=== PATIENT | male | born 1960 | race Caucasian/White ===

== ENCOUNTER → 2022-03-01 13:10 | Outpatient (BNVA) | payer MEDICAID, SELFPAY | PROVIDERS: Visit Provider Internal Medicine | DX: I11.0 Hypertensive heart disease with heart failure (principal); I50.9 Heart failure, unspecified; E11.9 Type 2 diabetes mellitus without complications; I48.91 Unspecified atrial fibrillation; Z79.4 Long term (current) use of insulin | CPT/HCPCS: 99214 ==

== ENCOUNTER 2022-06-13 03:21 | Emergency (ER) | payer MEDICAID, SELFPAY ==
[2022-06-13 03:22] VITALS: PULSE 0; RESP 0; O2SAT 40; BMI 38.2
--- NOTE | 2022-06-13 03:29 | ECG_ITS ---
[facility] Test Date: 2022-06-13 Pat Name: Dav Arita Department: Room: Gender: Male [employer] Coordinator: : 1960 Requested By: Callum Boyle Order Number: [id number] Andie MD: Nayana Chavez M.D. Measurements Intervals [place] Rate: 90 P: DC: QRS: -82 QRSD: 236 T: 93 QT: 518 QTc: 637 Interpretive Statements UNCERTAIN IRREGULAR RHYTHM RIGHT BUNDLE BRANCH BLOCK [120+ ms QRS DURATION, UPRIGHT V1, 40+ ms S IN I/aVL/V4/V5/V6] LEFT VENTRICULAR HYPERTROPHY AND ST-T CHANGE [VOLTAGE CRITERIA PLUS ST/T ABNORMALITY] ANTERIOR MYOCARDIAL INFARCTION , OF INDETERMINATE AGE [40+ ms Q WAVE AND/OR ST/T ABNORMALITY IN V3/V4] INFERIOR MYOCARDIAL INFARCTION , POSSIBLY ACUTE [40+ ms Q WAVE AND/OR ST/T ABNORMALITY IN II/aVF] PROLONGED QT INTERVAL ACUTE NC No previous ECG available for comparison Electronically Signed On 06-15-2022 7:23:59 CDT by Nayana Chavez M.D. [id number] gupta
--- NOTE | 2022-06-13 03:43 | XRR_ITS ---
PROCEDURE INFORMATION: Exam: XR Chest Exam date and time: 06/13/2022 3:22 AM Age: 62 years old Clinical indication: Other: Code blue; Prior surgery; Surgery type: Gb; Patient HX: Cpr in progress. Patient received multiple shocks. Blood suctioned from et tube. Et tube adjusted inbetween exposures. TECHNIQUE: Imaging protocol: Radiologic exam of the chest. Views: 1 view. COMPARISON: No relevant prior studies available. FINDINGS: Tubes, catheters and devices: Two images obtained, 3:27 a.m., 3:48 a.m.. On the 1st image, the ET tube lies about 5 cm above the jaja. On the 2nd image, the ET tube has been advanced, lying about 3 cm above the jaja. Lungs: Prominent diffuse bilateral lung opacities could represent CHF/pulmonary edema and/or pneumonia. Please correlate clinically. Pleural spaces: No definite pneumothorax, however a small pneumothorax might not be visible on an image of this technique. No definite pleural fluid. Heart/Mediastinum: Moderate cardiomegaly. Bones/joints: No significant acute finding. XR/XR chest 1V portable [id number] IMPRESSION: 1. ET tube position as above. 2. Prominent diffuse bilateral lung opacities, see above discussion. 3. Other findings discussed above.
--- NOTE | 2022-06-13 04:23 | PC.NURSE ---
Left message on Jr Almeida material handler loader voicemail to return call. Notified [facility] (Daria) of patient passing.
--- NOTE | 2022-06-13 06:15 | W.ED.CPR ---
HPI - CPR General: Chief Complaint: Cardiac Arrest/CPR Stated Complaint: CARDIAC ARREST Time Seen by Provider: 06/13/22 03:43 Source: family and EMS History of Present Illness: 62-year-old male with a history of atrial fibrillation, congestive heart failure, and diabetes. He presents after collapsing at home and being found by his unresponsive. On EMS arrival, he had agonal respirations, and was found to be in V. tach. He was cardioverted. ROSC was obtained briefly, but followed by loss of pulses and a PEA rhythm. He presents intubated and bagged, with ongoing chest compressions and a PEA rhythm. He has had 3 mg of epinephrine in the field, and initially was given 150 mg of amiodarone. MD complaint: found unresponsive and other Onset (ago): minute(s) Time: 03:00 Timing confirmed by: spouse Place: home Bystander CPR performed: No AED applied by bystander/healthcare prof: Yes Shock advised: Yes Initial findings in the field: unresponsive ROSC in the field: Yes (once, but then lost) Associated injuries: No Associated symptoms: shortness of breath Known history of: arrhythmia Treatments prior to arrival: intubation, chest compressions, defibrillated shocks # (1), epinephrine mgs # (3) and amiodarone (150) Review of Systems General: Reports: ROS unobtainable due to medical condition Card: Reports: dyspnea on exertion and orthopnea Resp: Reports: dyspnea PFSH ED PFSH: Medical History Congestive heart failure Diabetes Hypertension Family History Other Hypertension Social History Smoking and tobacco status: never smoked Quit status (tobacco): has quit using tobacco Second hand smoke exposure: No Smoking risk assessment/counseling performed?: No Alcohol intake: never Physical Exam Const: GENERAL APPEARANCE: Limp noted NUTRITIONAL APPEARANCE: obese ORIENTATION/CONSCIOUSNESS: Yes Other orientation findings (unresponsive) HENMT: COMMON NORMALS: atraumatic and Normal external nose present HEAD & SCALP: atraumatic and Acrocyanosis present FACE & SINUS: Acrocyanosis present NOSE: Normal external nose present Eye: PUPIL: Yes Dilated pupils and Yes Fixed pupils Neck/C-Spine: GENERAL: Yes trachea midline Chest: CHEST: Yes Symmetrical chest wall rise Resp: EFFORT & INSPECTION: Yes symmetric chest movement AUSCULTATION: rales and rhonchi Cardio: RATE: Other (no pulse) Neuro: ROBI COMA SCALE: document GCS findings [place] coma scale eye opening: None Robi coma scale verbal response: None [place] coma scale motor response: None [place] coma scale total score: 3 Course Vital Signs: Vital signs: Vital Signs Pulse Rate 0 L 06/13/22 03:22 Respiratory Rate 0 L 06/13/22 03:22 Pulse Oximetry 40 L 06/13/22 03:22 Oxygen Delivery Me thod 06/13/22 03:22 MDM - Cardiac Arrest/CPR Medical Decision Making On arrival this patient was pulseless, and in PEA. Chest compressions were continued. We will continue to give epinephrine. Bicarbonate was given as well. Breath sounds were present on bag valve respirations through the ET tube. Chest x-ray confirmed tracheal placement, but was a bit high, and the tube was advanced. At 1 point, ventricular tachycardia was seen at pulse check. This was cardioverted to a wide sinus rhythm with defibrillation. Pulses were maintained for short time at that point. The patient was given amiodarone when he again had ventricular tachycardia, at this time pulsatile. Short time after this, the patient bradycardia down to a PEA rhythm and was pulseless again. Bedside ultrasound while the patient had a rhythm showed an ejection fraction around 10% with no pericardial effusion. Chest x-ray showed again proper tube placement with a very large heart, and pulmonary edema present. After multiple rounds of CPR and epinephrine administration, and despite epinephrine drip, the patient bradycardia down to PEA again. His was counseled extensively on the lack of quality of life after being down essentially an hour or more at this point without sustainable rhythm, or good oxygenation. The patient was cyanotic the whole time. She gave permission to stop CPR. Code was called at [id number]. Lab Data Radiology Impressions Chest X-Ray 06/13/22 03:43 IMPRESSION: 1. ET tube position as above. 2. Prominent diffuse bilateral lung opacities, see above discussion. 3. Other findings discussed above. Critical Care Time Critical Care Time: Critical Care Time: Yes Total Critical Care Time: 60 Attestation: This case had a high probability of a clinically significant, sudden, or life threatening deterioration of this patient's condition which required my full and direct attention, intervention and personal management. Discharge Plan Discharge Patient Disposition: Clinical Impression: Cardiac arrest Coding Level of Care Code ED Carburetor Mechanic for Lisa Cruz
== END 2022-06-13 06:42 | disposition expired ==
PROVIDERS: Emergency Provider Emergency Medicine
DX: I46.9 Cardiac arrest, cause unspecified (principal); I11.0 Hypertensive heart disease with heart failure; I50.9 Heart failure, unspecified; E11.9 Type 2 diabetes mellitus without complications; Z87.891 Personal history of nicotine dependence
CPT/HCPCS: 71045; 93005; 99291; 99292